=== PATIENT | male | born 1965 | race Two or more races ===

== ENCOUNTER 2021-08-02 19:07 | Inpatient (IN) | payer BC, MEDICAID, OTHER ==
[~2021-08-02] VITALS: Ht 172.7 cm; Wt 81.8 kg
[2021-08-02] MEDS ORDERED: fentaNYL CITRATE 100 MCG/2 ML VL IV ONE (20:00)
[2021-08-02] MEDS ORDERED: SODIUM CHLORIDE 0.9% 1,000 ML IV ONE (20:00)
[2021-08-02 20:42] LABS: Basophils # (auto) 0 10 ^3/uL (0-0.2); Basophils % (auto) 0.2 % (0.0-2.0); Eosinophils # (auto) 0 10 ^3/uL (0-0.8); Hemoglobin 8.4 g/dL (13.5-17.5); Lymphocytes # (auto) 0.2 10 ^3/uL (0.4-5.4); Lymphocytes % (auto) 1.3 % (10.0-50.0)
[2021-08-02 20:45] LABS: Hematocrit 26.2 % (41.0-53.0); Mean Corpuscular Hemoglobin 23.8 pg (28.0-32.0); Mean Corpuscular Hgb Conc. 32.1 g/dL (32.0-36.0); Mean Corpuscular Volume 74.2 fL (80.0-100.0); Monocytes # (auto) 0.3 10 ^3/uL (0-1.3); Monocytes % (auto) 2.5 % (0.0-12.0); Neutrophils # (auto) 12.7 10 ^3/uL (1.6-8.6); Nucleated Red Blood Cells % 0.1 %; Red Blood Cells 3.53 10^6/uL (4.5-5.90); Red Cell Distribution Width 25.1 % (11.8-14.3); White Blood Cell 13.2 10^3/uL (4.4-10.8)
[2021-08-02 20:58] LABS: Albumin 1.9 g/dL (3.4-5.0); Calcium 8.9 mg/dL (8.5-10.1); INR 1.11 (0.9-1.15); Partial Thromboplastin Time 28.4 sec (23.6-33.0)
[2021-08-02 21:01] LABS: Lactic Acid w/Reflex 2.9 mmol/L (0.4-2.0)
[2021-08-02 21:02] LABS: BUN/Creatinine Ratio 28.7; Bilirubin, Total 0.4 mg/dL (0.2-1.0); Total Protein 7.9 g/dL (6.4-8.2)
[2021-08-02 21:06] LABS: Potassium 5.6 mmol/L (3.5-5.1)
[2021-08-02] MEDS ORDERED: CALCIUM GLUC 1,000mg/50ml-NS 50 ML IV ONE (21:15)
[2021-08-02] MEDS ORDERED: ALBUTEROL SULF 2.5 MG/0.5ML(0.5%) NEB SOLN NEB ONE (21:15)
[2021-08-02] MEDS ORDERED: PIPERACILLIN-TAZOB 3.375GM 100 ML IV ONE (21:45)
[2021-08-02] MEDS ORDERED: CIPROFLOXACIN 400MG/200ML 200 ML IV ONE (22:00)
[2021-08-02] MEDS ORDERED: metroNIDAZOLE 500MG/100ML 100 ML IV ONE (22:00)
[2021-08-02] MEDS ORDERED: HYDROmorphone HCL 2 MG/ML VL IV ONE (22:00)
[2021-08-02] MEDS ORDERED: ONDANSETRON HCL 4 MG/2 ML VIAL IV PRN (22:45)
[2021-08-02] MEDS ORDERED: SODIUM ZIRCONIUM CYCL 10 GM PAK PO ONE (22:45)
[2021-08-02] MEDS ORDERED: FUROSEMIDE 20 MG/2 ML VIAL IV ONE (22:45)
[2021-08-02] MEDS ORDERED: ACETAMINOPHEN 325 MG TAB PO PRN (22:45)
[2021-08-02] MEDS ORDERED: ALBUMIN 25% 100 ML IV ONE (22:45)
[2021-08-02] MEDS ORDERED: InsuLIN REG 1unit/0.01ml Soln (100units/ml) IV ONE (22:45)
[2021-08-02] MEDS ORDERED: SODIUM BICARBONATE 8.4% INJ 50ML SYRINGE IV ONE (22:45)
[2021-08-02] MEDS ORDERED: HYDROmorphone HCL 2 MG/ML VL IV PRN (23:30)
[2021-08-02] MEDS ORDERED: CARVEDILOL 3.125 MG TAB PO ONE (23:30)
[2021-08-02] MEDS ORDERED: SODIUM BICARBONATE 8.4 % INJ 50ML VIAL IV ONE (23:38)
[2021-08-02] MEDS ORDERED: MORPHINE SULFATE INJECTION 2 MG/ML SYRG IV PRN (23:45)
[2021-08-02] MEDS ORDERED: NITROGLYCERIN 0.4 MG SL TAB SL PRN (23:45)
[2021-08-03] MEDS ORDERED: HYDROmorphone HCL 2 MG/ML VL IV PRN ×2 (02:15→03:45)
[2021-08-03] MEDS: HYDROmorphone HCL 2 MG/ML VL IV PRN ×4 (03:40→22:34)
[2021-08-03 03:57] LABS: Basophils # (auto) 0 10 ^3/uL (0-0.2); Eosinophils # (auto) 0 10 ^3/uL (0-0.8); Hemoglobin 7.4 g/dL (13.5-17.5); Lymphocytes # (auto) 0.2 10 ^3/uL (0.4-5.4); Monocytes # (auto) 0.3 10 ^3/uL (0-1.3); Monocytes % (auto) 2.3 % (0.0-12.0); Neutrophils # (auto) 11.2 10 ^3/uL (1.6-8.6)
[2021-08-03] MEDS ORDERED: VANCOMYCIN PER PHARMACY 0 MG IV SCH (04:00)
[2021-08-03 04:16] LABS: BUN/Creatinine Ratio 29.3; Calcium 9.1 mg/dL (8.5-10.1); Potassium 5.2 mmol/L (3.5-5.1)
[2021-08-03 04:18] LABS: Bilirubin, Total 0.4 mg/dL (0.2-1.0); Total Protein 7.3 g/dL (6.4-8.2)
[2021-08-03 04:24] LABS: Basophils % (auto) 0.2 % (0.0-2.0); Hematocrit 23.5 % (41.0-53.0); Lymphocytes % (auto) 2.1 % (10.0-50.0); Mean Corpuscular Hemoglobin 23.5 pg (28.0-32.0); Mean Corpuscular Hgb Conc. 31.5 g/dL (32.0-36.0); Mean Corpuscular Volume 74.5 fL (80.0-100.0); Neutrophils % (auto) 95.4 % (37.0-80.0); Nucleated Red Blood Cells % 0.2 %; Red Blood Cells 3.15 10^6/uL (4.5-5.90); White Blood Cell 11.8 10^3/uL (4.4-10.8)
[2021-08-03] MEDS ORDERED: VANCOMYCIN 1GM/250ML 250 ML IV ONE (05:00)
[2021-08-03] MEDS: SODIUM CHLOR 0.9% PF (SALINE LOCK) 10ML VIAL/SYR IV SCH ×3 (06:01→22:09)
[2021-08-03] MEDS: metroNIDAZOLE 500MG/100ML 100 ML IV SCH ×3 (06:05→22:08)
[2021-08-03] MEDS: MORPHINE SULFATE 4 MG/ML SYR/VIAL IV PRN ×2 (06:57→21:45)
[2021-08-03] MEDS ORDERED: APIXABAN 2.5 MG TAB PO SCH (10:00)
[2021-08-03] MEDS: MULTIPLE VITAMIN TAB PO SCH (10:00)
[2021-08-03] MEDS: ZINC SULFATE 220mg CAP or TAB PO SCH (10:00)
[2021-08-03] MEDS: HEPARIN SODIUM (PORCINE) 5000 UNITS/ML 1ML VIAL SC SCH ×2 (10:00→22:10)
[2021-08-03] MEDS ORDERED: CARVEDILOL 3.125 MG TAB PO SCH (10:00)
[2021-08-03] MEDS: ASCORBIC ACID 500 MG TAB PO SCH ×2 (10:00→22:09)
[2021-08-03] MEDS: ALBUMIN 25% 100 ML IV SCH ×2 (10:30→18:33)
[2021-08-03] MEDS: FUROSEMIDE 100 MG/10ML VIAL IV SCH ×2 (10:42→18:00)
[2021-08-03] MEDS: HYDROcodone-ACET 5/325MG TAB PO PRN ×2 (11:52→18:33)
[2021-08-03] MEDS: SODIUM BICARBONATE 650 MG TAB PO SCH ×2 (14:00→22:09)
[2021-08-03 16:32] LABS: Urine Bacteria MANY /hpf (None Seen); Urine Blood Negative /uL (Negative); Urine Specific Gravity 1.008 (1.001-1.035); Urine WBC 80 /hpf (0 - 3)
[2021-08-03] MEDS ORDERED: SODIUM CHLORIDE 0.9% 250 ML IV ONE (20:00)
[2021-08-03] MEDS ORDERED: HEPARIN SODIUM (PORCINE) 5000 UNITS/ML 1ML VIAL ONE (21:48)
[2021-08-03] MEDS ORDERED: cefTRIAXone 1GM/50ML D5W 50 ML IV SCH (22:00)
[2021-08-03] MEDS: METOPROLOL TARTRATE 1MG/1ML-5ML VIAL IV PRN (23:42)
[2021-08-04] MEDS: HYDROmorphone HCL 2 MG/ML VL IV PRN ×2 (00:58→06:30)
[2021-08-04] MEDS: MORPHINE SULFATE 4 MG/ML SYR/VIAL IV PRN (02:51)
[2021-08-04] MEDS: ALBUMIN 25% 100 ML IV SCH (03:01)
[2021-08-04] MEDS ORDERED: METOPROLOL TARTRATE 1MG/1ML-5ML VIAL IV ONE (03:15)
[2021-08-04] MEDS: METOPROLOL TARTRATE 1MG/1ML-5ML VIAL IV PRN (03:22)
[2021-08-04 04:00] VITALS: BP 110/54
[2021-08-04 05:32] LABS: INR 1.18 (0.9-1.15); Partial Thromboplastin Time 28.8 sec (23.6-33.0)
[2021-08-04 05:58] LABS: Calcium 8.7 mg/dL (8.5-10.1); Potassium 5.2 mmol/L (3.5-5.1)
[2021-08-04] MEDS: SODIUM CHLOR 0.9% PF (SALINE LOCK) 10ML VIAL/SYR IV SCH (06:05)
[2021-08-04] MEDS: metroNIDAZOLE 500MG/100ML 100 ML IV SCH (06:25)
[2021-08-04] MEDS: FUROSEMIDE 100 MG/10ML VIAL IV SCH (06:28)
[2021-08-04] MEDS: SODIUM BICARBONATE 650 MG TAB PO SCH (06:29)
[2021-08-04] MEDS ORDERED: SODIUM BICARB 50ML SYR 50 ML in SOD CHL 0.45% 1,000 ML IV SCH (08:15)
[2021-08-04 09:00] VITALS: BP 99/65
[2021-08-04] MEDS: ZINC SULFATE 220mg CAP or TAB PO SCH (09:24)
[2021-08-04] MEDS: HEPARIN SODIUM (PORCINE) 5000 UNITS/ML 1ML VIAL SC SCH (09:24)
[2021-08-04] MEDS: MULTIPLE VITAMIN TAB PO SCH (09:24)
[2021-08-04] MEDS: ASCORBIC ACID 500 MG TAB PO SCH (09:24)
[2021-08-04] MEDS ORDERED: SODIUM CHLORIDE 0.9% 500 ML IV ONE (09:30)
[2021-08-04 13:00] VITALS: BP 109/68
[2021-08-04 14:07] VITALS: BP 101/63
== END 2021-08-04 14:40 | disposition hospice, home (50) | DRG 720 ==
LOC: EDBD 19:07 → ER 19:09 → TELE 23:44 → TELE-WESTW 08-03 09:30
PROVIDERS: ADMIT Nurse Practitioner Family; ATTEND Nurse Practitioner Family
DX: A41.9 Sepsis, unspecified organism (principal); G93.41 Metabolic encephalopathy; N17.9 Acute kidney failure, unspecified; E46 Unspecified protein-calorie malnutrition; D63.8 Anemia in other chronic diseases classified elsewhere; E87.1 Hypo-osmolality and hyponatremia; C78.7 Secondary malignant neoplasm of liver and intrahepatic bile duct; C19 Malignant neoplasm of rectosigmoid junction; C78.00 Secondary malignant neoplasm of unspecified lung; E86.0 Dehydration; E87.5 Hyperkalemia; I10 Essential (primary) hypertension; B96.89 Other specified bacterial agents as the cause of diseases classified elsewhere; E86.1 Hypovolemia; I48.91 Unspecified atrial fibrillation; N13.6 Pyonephrosis; R19.00 Intra-abdominal and pelvic swelling, mass and lump, unspecified site; R73.9 Hyperglycemia, unspecified; R00.0 Tachycardia, unspecified; R59.0 Localized enlarged lymph nodes; Z20.822 Contact with and (suspected) exposure to COVID-19; Z51.5 Encounter for palliative care; Z85.048 Personal history of other malignant neoplasm of rectum, rectosigmoid junction, and anus; Z93.3 Colostomy status; Z68.27 Body mass index [BMI] 27.0-27.9, adult
CPT/HCPCS: 36415; 74176; 80048; 80053; 80202; 81001; 83036; 83605; 85025; 85610; 85730; 86850; 86900; 86901; 87040; 87077; 87086; 87088; 87186; 87426; 93005; 93306; 94640; 96361; 96365; 96366; 96367; 96375; 99291; G0378; J0696; J3490; P9047